=== PATIENT | female | born 1980 | race Caucasian/White ===

== ENCOUNTER 2017-03-01 22:42 | Emergency (ER) | payer MEDICARE | END 2017-03-02 01:30 | disposition home or self-care (01) | LOC: ER 22:42 | DX: B34.9 Viral infection, unspecified (principal); J02.9 Acute pharyngitis, unspecified; I10 Essential (primary) hypertension; Z79.899 Other long term (current) drug therapy; Z88.5 Allergy status to narcotic agent | CPT/HCPCS: 36415; 87502; 87651 ==